=== PATIENT | female | born 1970 | race Caucasian/White ===

== ENCOUNTER → 2017-12-09 17:45 | Outpatient (CLI) | payer MEDICARE ==
[2012-12-11 07:36] VITALS: BMI 34.4
[~2017-12-09 17:45] MED LIST: AMBIEN10 MG PO; NORCO 10/325 TA1 TA1 PO; ONGLYZA2.5 MG PO; PRILOSEC20 MG PO; PRINIVIL10 MG PO; SOMA350 MG PO; VITAMIN D250000 UNIT PO; XANAX1 MG PO
[2017-12-09 19:45] LABS: ALT (SGPT) 80 U/L (10-68); CHOL - HDL RATIO 7.2 ratio (2.3-4.1); CHOLESTEROL, TOTAL 217 mg/dL (0-200); HDL CHOLESTEROL 30 mg/dL (32-96); TRIGLYCERIDE 488 mg/dL (30-200)
== END | disposition home or self-care (01) ==
LOC: D.LABREF 17:45
PROVIDERS: Internal Medicine Interventional Cardiology
DX: I10 Essential (primary) hypertension (principal)

== ENCOUNTER → 2018-11-16 13:16 | Outpatient (CLI) | payer MEDICARE ==
[2012-12-11 07:36] VITALS: BMI 34.4
--- NOTE | 2018-11-17 14:00 | EC ---
PATIENT:MICHAEL MCGEE DATE OF SERVICE: 11/16/18 SEX: F MEDICAL RECORD: [id number] DATE OF : [birth year] [facility] AGE OF PATIENT: 48 ADMISSION DATE: 11/16/18 REFERRING PHYSICIAN: INTERPRETING PHYSICIAN: LEONOR CORDERO MD ECHOCARDIOGRAM REPORT ECHO CHARGES 4 ECHO COMPLETE Date: 11/16/18 CLINICAL DIAGNOSIS: MURMUR ECHOCARDIOGRAPHIC MEASUREMENTS (adult normal given) AC root (d.<3.7cm) 3.0 cm LV Septum d (<1.2 cm> 1.2 cm Valve Excursion 1.5 cm LV Septum (systole) 1.6 cm Left Atria (s.<4.0cm> 3.5 cm LVPW d(<1.2cm) 1.4 cm RV (d.<2.3cm) 2.9 cm LVPW (sytole) 1.7 cm LV diastole(<5.6CM) 4.3 cm MV E-F(>70mm/sec) cm LV systole 3.2 cm LVOT Diameter 1.7 cm MV exc.(>10mm) 1.6 cm Est.ejection fraction (50-75%) % DOPPLER: LVIT cm/sec A 668.0cm/sec E 54.0 cm/sec LA cm/sec RVSP 20 mmHg LVOT 133 cm/sec AOP1/2T 515 m/s Asc. Ao 164 cm/sec RVOT 100 cm/sec RA cm/sec PA 108 cm/sec AV Gradient Peak 10.80mmHg AV Mean 6.04 mmHg AV Area 2.1 cm MV Gradient Peak 8.95 mmHg MV Mean 3.70 mmHg MV Area cm COMMENTS: Senior Capital [employer] Specialist: Yaneth WIGGINS [employer] Worker: [address] TAPE# PACS Pericardial Effusion N DATE OF SERVICE: 11/16/2018 Adequate 2-D echo, color-flow and spectral Doppler, and M-mode. Borderline LVH. LV internal dimensions are normal. Wall motion is normal. EF is greater than 55%. Aortic valve is tricuspid. No evidence of stenosis by Doppler interrogation. Left atrium is normal at 3.5 cm. Mitral valve shows no prolapse. Trace MR. Right-sided chambers are grossly normal. Trace TR. TRANSINT:[id number] Voice Confirmation ID: [id number] DOCUMENT ID: [id number] ECHOCARDIOGRAM REPORT [id number] MICHAEL MCGEE,LEONOR Limon MD at 1400 CC: [id number] DICTATION DATE: 11/17/18 1302 MAGNETIZER: 11/17/18 1359 DEP CLI 11/16/18 [place] [id number] [place] [id number]
== END | disposition home or self-care (01) ==
LOC: D.HCCARDIO 11-10 09:30
PROVIDERS: ATTEND Internal Medicine Interventional Cardiology
DX: R01.1 Cardiac murmur, unspecified (principal)

== ENCOUNTER → 2019-01-08 09:00 | Outpatient (CLI) | payer MEDICARE ==
[2012-12-11 07:36] VITALS: BMI 34.4
== END | disposition home or self-care (01) ==
LOC: D.NM 09:00
PROVIDERS: ATTEND Family Medicine
DX: R10.11 Right upper quadrant pain (principal)

== ENCOUNTER → 2019-04-06 10:55 | Outpatient (CLI) | payer MEDICARE ==
[2012-12-11 07:36] VITALS: BMI 34.4
== END | disposition home or self-care (01) ==
LOC: D.NM 10:55
PROVIDERS: ATTEND Internal Medicine Gastroenterology
DX: R10.9 Unspecified abdominal pain (principal)

== ENCOUNTER 2019-04-16 19:55 | Outpatient (CLI) | payer MEDICARE ==
[2012-12-11 07:36] VITALS: BMI 34.4
== END 2019-04-16 23:59 | disposition home or self-care (01) ==
LOC: D.MAMMO 19:55
PROVIDERS: ATTEND Family Medicine
DX: Z12.31 Encounter for screening mammogram for malignant neoplasm of breast (principal)

== ENCOUNTER → 2019-06-10 08:48 | Outpatient (CLI) | payer MEDICARE ==
[2012-12-11 07:36] VITALS: BMI 34.4
[2019-06-10 09:56] LABS: ALBUMIN 3.8 g/dL (3.4-5.0); BILIRUBIN - DIRECT 0.14 mg/dL (0.00-0.30); BILIRUBIN - INDIRECT 0.28 mg/dL (0.00-1.00); BILIRUBIN - TOTAL 0.42 mg/dL (0.2-1.3)
== END | disposition home or self-care (01) ==
LOC: D.LAB 08:48 → D.US 10:30
PROVIDERS: ATTEND Internal Medicine Gastroenterology
DX: R10.11 Right upper quadrant pain (principal); R11.2 Nausea with vomiting, unspecified; K76.0 Fatty (change of) liver, not elsewhere classified; R51 Headache

== ENCOUNTER → 2019-11-23 13:17 | Outpatient (CLI) | payer MEDICARE ==
[2012-12-11 07:36] VITALS: BMI 34.4
--- NOTE | 2019-11-25 08:17 | EC ---
PATIENT:MICHAEL MCGEE DATE OF SERVICE: 11/23/19 SEX: F MEDICAL RECORD: [id number] DATE OF : [birth year] [facility] AGE [facility] PATIENT: 49 ADMISSION DATE: 11/23/19 REFERRING PHYSICIAN: INTERPRETING PHYSICIAN: LEONOR CORDERO MD ECHOCARDIOGRAM REPORT ECHO CHARGES 4 ECHO COMPLETE Date: 11/23/19 CLINICAL DIAGNOSIS: HTN ECHOCARDIOGRAPHIC MEASUREMENTS (adult normal given) AC root (d.<3.7cm) 3.0 cm LV Septum d (<1.2 cm> 1.1 cm Valve Excursion 1.6 cm LV Septum (systole) 1.6 cm Left Atria (s.<4.0cm> 3.5 cm LVPW d(<1.2cm) 1.4 cm RV (d.<2.3cm) 3.2 cm LVPW (sytole) 1.7 cm LV diastole(<5.6CM) 4.9 cm MV E-F(>70mm/sec) cm LV systole 2.8 cm LVOT Diameter 1.8 cm MV exc.(>10mm) 1.2 cm Est.ejection fraction (50-75%) % DOPPLER: LVIT cm/sec A 73.0 cm/sec E 83.0 cm/sec LA cm/sec RVSP 20 mmHg LVOT 130 cm/sec AOP1/2T m/s Asc. Ao 152 cm/sec RVOT 94 cm/sec RA cm/sec PA 108 cm/sec AV Gradient Peak 9.29 mmHg AV Mean 5.10 mmHg AV Area 2.2 cm MV Gradient Peak 4.19 mmHg MV Mean 2.11 mmHg MV Area cm COMMENTS: Conference Services Coordinator: 2 ROXIE WIGGINS [employer] Operator: [address] TAPE# PACS Pericardial Effusion N DATE OF SERVICE: Adequate 2D, color flow imaging, spectral Doppler, and M-Mode. No LVH. LV internal dimension is normal. Wall motion is normal. EF is greater than or equal to 55%. Aortic valve is tricuspid. No evidence of stenosis by Doppler interrogation. Left atrium is normal at 3.5 cm. Mitral valve shows no prolapse. Trace MR. Right-sided chambers are grossly normal. Trace TR. TRANSINT:[id number] Voice Confirmation ID: [id number] DOCUMENT ID: [id number] ECHOCARDIOGRAM REPORT [id number] MICHAEL MCGEE,LEONOR Limon MD at 0817 CC: [id number] DICTATION DATE: 11/23/19 162 [place] MACHINE OPERATOR: 11/24/19 0155 DEP CLI 11/23/[address] [facility] [address] [place] [id number]
== END | disposition home or self-care (01) ==
LOC: D.HCCECHO 13:17
PROVIDERS: ATTEND Internal Medicine Interventional Cardiology
DX: I10 Essential (primary) hypertension (principal)

== ENCOUNTER 2020-10-31 08:43 | Emergency (ER) | payer MEDICARE ==
[~2020-10-31] VITALS: Ht 162.6 cm; Wt 86.4 kg
[~2020-10-31 08:43] MED LIST changes: +CELEXA20 MG PO; +DEPAKOTE125 MG; +DEPAKOTE250 MG PO; +DOXEPIN HCL75 MG PO; +GEODON20 MG PO; +GLUCOTROL 5 MG T5 MG PO; +GLUCOTROL ER2.5 MG PO; +LIBRIUM25 MG PO; +LISINOPRIL2.5 MG PO; +NEURONTIN600 MG PO; +RISPERDAL1 MG PO; +TRILEPTAL300 MG PO; +XANAX2 MG PO
[2020-10-31 08:47] VITALS: Ht 162.6 cm; Wt 86.4 kg
[2020-10-31 09:19] LABS: BASOPHILS 0.3 % (0-2); EOSINOPHILS 0.4 % (0-7); HEMATOCRIT 40.7 % (36.0-48.0); HEMOGLOBIN 13.9 g/dL (12-16); IMMATURE GRANULOCYTES 0.3 % (0-5); LYMPHOCYTE ABS# 0.78 10x3/uL (1.18-3.74); LYMPHOCYTES 11.1 % (15-50); MCH 32.2 pg (26.0-34.0); MCHC 34.2 g/dL (31.0-37.0); MCV 94.2 fL (80.0-100.0); MEAN PLATELET VOLUME 9.7 fL (7.4-10.4); MONOCYTES 7.1 % (2-11); NEUTROPHIL ABS# 5.68 10x3/uL (1.56-6.13); NEUTROPHILS 80.8 % (40-80); PLATELET COUNT 206 10x3/uL (130-400); RBC 4.32 10x6/uL (4.00-5.40); RDW 12.7 % (11.5-14.5)
[2020-10-31 09:36] LABS: CALC OSMOLALITY 280 mosm/kg (275-300); CALCIUM 9.2 mg/dL (8.5-10.1); CARBON DIOXIDE 24.5 mmol/L (21.0-32.0); CHLORIDE - SERUM 104 mmol/L (98-107); CREATININE - SERUM 0.8 mg/dL (0.6-1.3); GLUCOSE 152 mg/dL (74-106); POTASSIUM - SERUM 4.1 mmol/L (3.5-5.1); SODIUM 140 mmol/L (136-145); UREA NITROGEN 10 mg/dL (7-18); eGFR NON AFRICAN AMERICAN 81 mL/min (90-120)
[2020-10-31 09:38] LABS: ALBUMIN 3.8 g/dL (3.4-5.0); ALKALINE PHOSPHATASE 52 U/L (30-120); ALT (SGPT) 28 U/L (10-68); BILIRUBIN - TOTAL 0.27 mg/dL (0.2-1.3); MAGNESIUM - SERUM 1.9 mg/dL (1.8-2.4)
[2020-10-31] MEDS ORDERED: KEPPRA1000 MG PO (10:52)
[2020-10-31] MEDS ORDERED: DEPAKOTE250 MG PO (11:07)
[2020-10-31] MEDS ORDERED: XANAX2 MG PO (11:10)
[2020-10-31] MEDS ORDERED: GEODON20 MG PO (11:11)
[2020-10-31 13:02] VITALS: BP 114/73
== END 2020-10-31 12:47 | disposition home or self-care (01) ==
LOC: D.ER 08:43
PROVIDERS: Emergency Medicine
DX: R56.9 Unspecified convulsions (principal); E11.40 Type 2 diabetes mellitus with diabetic neuropathy, unspecified; I10 Essential (primary) hypertension; E78.5 Hyperlipidemia, unspecified; K21.9 Gastro-esophageal reflux disease without esophagitis; Z79.84 Long term (current) use of oral hypoglycemic drugs